=== PATIENT | male | born 1965 | race Caucasian/White ===

== ENCOUNTER 2023-07-08 12:52 | Emergency (ER) | payer SELFPAY | END 2023-07-08 15:15 | disposition home or self-care (01) | LOC: JD.ED 12:52 | DX: N41.9 Inflammatory disease of prostate, unspecified (principal); R36.1 Hematospermia; J44.9 Chronic obstructive pulmonary disease, unspecified; F17.200 Nicotine dependence, unspecified, uncomplicated; Z79.899 Other long term (current) drug therapy | CPT/HCPCS: 99283 ==